=== PATIENT | female | born 1960 | race African-American/Black ===

== ENCOUNTER 2017-10-30 09:45 | Inpatient (IN) | payer OTHER ==
[~2017-10-30] VITALS: Ht 157.5 cm; Wt 59.0 kg
[2017-10-30 09:36] VITALS: BP 141/64
[~2017-10-30 09:45] MED LIST: ATARAX25 MG ORAL; DALMANE15 MG ORAL; NORCO 5-325 TA1 EACH ORAL; SOMA350 MG PO; [UNRECOGNIZED DRUG - REMARK]
[2017-10-30 10:21] LABS: EOSINOPHILS % (AUTO) 1.1 % (0.0-3.0); HEMATOCRIT 38.9 % (37.0-47.0); HEMOGLOBIN 13.1 G/DL (12.0-16.0); LYMPHOCYTES % (AUTO) 17.2 % (20.0-45.0); MEAN CORPUSCULAR VOLUME 87 FL (80-99); NEUTROPHILS % (AUTO) 73.8 % (45.0-75.0); PLATELET COUNT 374 K/UL (150-450); RED BLOOD COUNT 4.49 M/UL (4.20-5.40); RED CELL DISTRIBUTION WIDTH 11.5 % (11.6-14.8); WHITE BLOOD COUNT 7.6 K/UL (4.8-10.8)
[2017-10-30 10:34] LABS: ALANINE AMINOTRANSFERASE 24 U/L (12-78); ALBUMIN 3.6 G/DL (3.4-5.0); ALKALINE PHOSPHATASE 76 U/L (46-116); ANION GAP 11 mmol/L (5-15); ASPARTATE AMINO TRANSFERASE 24 U/L (15-37); BILIRUBIN,TOTAL 0.5 MG/DL (0.2-1.0); BLOOD UREA NITROGEN 9 mg/dL (7-18); CALCIUM 8.8 MG/DL (8.5-10.1); CARBON DIOXIDE 25 MMOL/L (21-32); CHLORIDE 85 MMOL/L (98-107); CREATININE 0.7 MG/DL (0.55-1.30); SODIUM 121 MMOL/L (136-145)
[2017-10-30 10:35] LABS: POTASSIUM 2.4 MMOL/L (3.5-5.1)
--- NOTE | 2017-10-30 11:28 | Emergency Room Report ---
History of Present Illness General Chief Complaint: Vomiting Source: Patient Present Illness HPI 57-year-old female with history of anxiety and hypertension, presents with vomiting multiple times and Loose Stools This Morning. She Denies Any Recent Antibiotic Use Any Abdominal Pain Any Fevers Any Falls or Head Injury, Headaches or Any Other Complaints. Only Intermittently Cooperative with Our Questions Here, she reports she is very anxious and after giving Ativan and Haldol she is a little more cooperative. She spoke with Shirlene, from the nursing staff and told her the majority of the history, and is very limited in her interaction with me. Allergies: Coded Allergies: ACETAMINOPHEN (Verified Allergy, Unknown, 05/04/09) HYDROCODONE (Verified Allergy, Unknown, 05/04/09) PENICILLINS (Unverified Allergy, Unknown, 10/30/17) No Known Allergies (Verified , 05/20/07) Patient History Reviewed Nursing Documentation: PMH: Agreed; PSxH: Agreed Nursing Documentation-PMH Hx Cardiac Problems: No - carpal tunnel, herniated disc, back apin Hx Hypertension: Yes History Of Psychiatric Problem: Yes - anxiety Review of Systems All Other Systems: negative except mentioned in HPI Physical Exam Vital Signs Date Time Temp Pulse Resp B/P (MAP) Pulse Ox O2 Delivery O2 Flow Rate FiO2 10/30/17 09:22 98.6 91 18 141/64 100 Room Air 98.6 Sp02 EP Interpretation: reviewed, normal General Appearance: no apparent distress, alert, non-toxic Head: normocephalic Eyes: bilateral eye normal inspection, bilateral eye PERRL, bilateral eye EOMI ENT: normal ENT inspection, hearing grossly normal, normal pharynx, no angioedema, normal voice, moist mucus membranes Neck: normal inspection, full range of motion, supple, supple/symm/no masses Respiratory: chest non-tender, lungs clear, normal breath sounds, chest symmetrical, palpation of chest normal Cardiovascular #1: normal peripheral pulses, regular rate, rhythm Cardiovascular #2: 2+ radial (R), 2+ radial (L) Gastrointestinal: normal inspection, non tender, soft, no mass, no guarding, no rebound Rectal: deferred Genitourinary: normal inspection, no CVA tenderness Musculoskeletal: back normal, gait/station normal, normal range of motion, non- tender, no calf tenderness Neurologic: alert, responsive, sales manager III-XII nml as tested, motor strength/tone normal, sensory intact, speech normal Psychiatric: judgement/insight normal, memory normal, no suicidal/homicidal ideation, other - Bizarre affect, moving her mouth and saying words but only speaking very very softly, almost unintelligible due to such quite volume Skin: normal color, no rash, warm/dry, normal turgor Lymphatic: no adenopathy Procedures Critical Care Time Critical Care Time Insert 30 minutes of critical care time excluding all procedures, pateint with need for placing seizure precautions and IV repletion of significantly low potassium and sodium placing patient at iminent risk of neurologic and cardiovascular instability. Medical Decision Making Diagnostic Impression: Primary Impression: Hyponatremia Additional Impression: Hypokalemia ER Course Patient with soft nontender abdomen, but a bizarre affect, no abdominal pain, no signs of head injury, normal neuro exam, do not suspect any other severe illness, but patient with low potassium and sodium, possibly from adequate by mouth intake combined with vomiting. We will admit and place on seizure precautions EKG Diagnostic Results EKG Time: 09:50 EP Interpretation: No ST segment changes no T-wave inversions, rate 73, right bundle branch bl Rate: normal Rhythm: NSR ST Segments: no acute changes Rhythm Strip Diag. Results Rhythm Strip Time: 12:10 EP Interpretation: yes Rate: 77 Rhythm: NSR, no PVC's, no ectopy Other X-Ray Diagnostic Results Other X-Ray Diagnostic Results : X-Ray ordered: abdomen # of Views/Limited Vs Complete: 4 View Indication: Other - vomiting EP Interpretation: Yes Interpretation: no soft tissue swelling, no fractures, nonspecific bowel gas , no sbo Impression: No acute disease Electronically Signed by: Jimmy Batres MD Last Vital Signs Date Time Temp Pulse Resp B/P (MAP) Pulse Ox O2 Delivery O2 Flow Rate FiO2 10/30/17 09:36 98.6 75 18 141/64 100 Room Air 98.6 Disposition: ADMITTED INPATIENT Referrals: NOT CHOSEN SHAYLA/,REFERRING (PCP) JIMMY BATRES M.D Oct 30, 2017 11:28
[2017-10-30 11:29] LABS: APPEARANCE,URINE CLEAR; BILIRUBIN, URINE NEGATIVE (NEGATIVE); COLOR,URINE PALE YELLOW; GLUCOSE, URINE (UA) NEGATIVE (NEGATIVE); KETONES,URINE NEGATIVE (NEGATIVE); LEUKOCYTE ESTERASE ,URINE NEGATIVE (NEGATIVE); NITRITE,URINE NEGATIVE (NEGATIVE); PH,URINE 8 (4.5-8.0); PROTEIN,URINE NEGATIVE (NEGATIVE); UROBILINOGEN,URINE NORMAL MG/DL (0.0-1.0)
[2017-10-30] MEDS ORDERED: LORazepam Inj 2mg/ml 1ml IV ONE (11:45)
[2017-10-30] MEDS ORDERED: Haloperidol 5mg/ml Inj IM ONE (12:15)
[2017-10-30 12:16] VITALS: BP 101/81
[2017-10-30 13:29] VITALS: BP 118/72
--- NOTE | 2017-10-30 15:49 | Consultation ---
Consult Note Consult Note 57-year-old female with history of anxiety and hypertension, presents with vomiting multiple times and Loose Stools This Morning. She Denies Any Recent Antibiotic Use Any Abdominal Pain Any Fevers Any Falls or Head Injury, Headaches or Any Other Complaints. Only Intermittently Cooperative with Our Questions Here, she reports she is very anxious and after giving Ativan and Haldol she is a little more cooperative. She spoke with Shirlene, from the nursing staff and told her the majority of the history, and is very limited in her interaction with me. Allergies: ACETAMINOPHEN (Verified Allergy, Unknown, 05/04/09) HYDROCODONE (Verified Allergy, Unknown, 05/04/09) PENICILLINS (Unverified Allergy, Unknown, 10/30/17) No Known Allergies (Verified , 05/20/07) Hx Cardiac Problems: No - carpal tunnel, herniated disc, back apin Hx Hypertension: Yes History Of Psychiatric Problem: Yes - anxiety interviewed- examined- data reviewed discussed with applied biology professor/Plan HypoNatremia- Depletional HypoKalemia : due to HCTZ Intractible vomiting- HTN Anxiety Ds D5NS KCL Pepcid Zofran monitor Eleazar Ramirez MD Oct 30, 2017 15:49
[2017-10-30 16:00] VITALS: BP 115/71
[2017-10-30] MEDS ORDERED: Pantoprazole Inj IVP SCH (16:00)
[2017-10-30] MEDS ORDERED: Pantoprazole Inj IVP ONE (16:00)
--- NOTE | 2017-10-30 16:20 | Diagnostic Imaging Report ---
Indication: Vomiting and pain Technique: Supine and upright view of the abdomen Comparison: none Findings: Unremarkable bowel gas pattern. No gaseous distention of large or small bowel. No significant air-fluid levels or evidence of free intraperitoneal air. No unusual masses or calcifications Impression: No acute process
[2017-10-30] MEDS: D5NS w/KCl 40mEq 1000ml 1,000 ML IV SCH (17:37)
[2017-10-30 20:00] VITALS: BP 122/82
--- NOTE | 2017-10-30 22:55 | Consultation ---
History of Present Illness General Chief Complaint: Vomiting Present Illness Allergies: Coded Allergies: ACETAMINOPHEN (Verified Allergy, Unknown, 05/04/09) HYDROCODONE (Verified Allergy, Unknown, 05/04/09) PENICILLINS (Unverified Allergy, Unknown, 10/30/17) No Known Allergies (Verified , 05/20/07) Medication History Scheduled Carisoprodol* (Soma*), 350 MG PO HS, (Reported) Flurazepam HCl (Flurazepam HCl), 15 MG ORAL QHS, (Reported) Hydroxyzine HCl (Hydroxyzine HCl), 25 MG ORAL HS, (Reported) Scheduled PRN Hydrocodone Bit/Acetaminophen 5-325* ([place] 5-325*), 1 TAB ORAL Q4H PRN for For Pain, (Reported) Miscellaneous Medications [No Med Lists], (Reported) Patient History Healthcare decision maker Resuscitation status Full Code Advanced Directive on File Physical Exam Last 24 Hour Vital Signs Date Time Temp Pulse Resp B/P (MAP) Pulse Ox O2 Delivery O2 Flow Rate FiO2 10/30/17 21:00 Room Air 10/30/17 20:00 98.9 84 18 122/82 (95) 100 98.9 10/30/17 20:00 77 10/30/17 16:14 Room Air 10/30/17 16:00 97.1 78 20 115/71 (86) 100 97.1 10/30/17 15:58 71 10/30/17 15:30 98.0 78 18 124/74 99 Room Air 10/30/17 13:29 98.6 72 12 118/72 100 Room Air 98.6 10/30/17 12:16 98.6 84 22 101/81 100 Room Air 98.6 10/30/17 09:36 98.6 75 18 141/64 100 Room Air 98.6 10/30/17 09:22 98.6 91 18 141/64 100 Room Air 98.6 Laboratory Tests Test 10/30/17 09:52 10/30/17 10:34 White Blood Count 7.6 K/UL (4.8-10.8) Red Blood Count 4.49 M/UL (4.20-5.40) Hemoglobin 13.1 G/DL (12.0-16.0) Hematocrit 38.9 % (37.0-47.0) Mean Corpuscular Volume 87 FL (80-99) Mean Corpuscular Hemoglobin 29.2 PG (27.0-31.0) Mean Corpuscular Hemoglobin Concent 33.7 G/DL (32.0-36.0) Red Cell Distribution Width 11.5 % (11.6-14.8) L Platelet Count 374 K/UL (150-450) Mean Platelet Volume 5.8 FL (6.5-10.1) L Neutrophils (%) (Auto) 73.8 % (45.0-75.0) Lymphocytes (%) (Auto) 17.2 % (20.0-45.0) L Monocytes (%) (Auto) 7.0 % (1.0-10.0) Eosinophils (%) (Auto) 1.1 % (0.0-3.0) Basophils (%) (Auto) 1.0 % (0.0-2.0) Sodium Level 121 MMOL/L (136-145) L Potassium Level 2.4 MMOL/L (3.5-5.1) *L Chloride Level 85 MMOL/L (98-107) L Carbon Dioxide Level 25 MMOL/L (21-32) Anion Gap 11 mmol/L (5-15) Blood Urea Nitrogen 9 mg/dL (7-18) Creatinine 0.7 MG/DL (0.55-1.30) Estimat Glomerular Filtration Rate > 60 mL/min (>60) Glucose Level 96 MG/DL (74-106) Calcium Level 8.8 MG/DL (8.5-10.1) Magnesium Level 1.8 MG/DL (1.8-2.4) Total Bilirubin 0.5 MG/DL (0.2-1.0) Aspartate Amino Transf (AST/SGOT) 24 U/L (15-37) Alanine Aminotransferase (ALT/SGPT) 24 U/L (12-78) Alkaline Phosphatase 76 U/L (46-116) Troponin I 0.000 ng/mL (0.000-0.056) C-Reactive Protein, Quantitative 0.9 mg/dL (0.00-0.90) Total Protein 7.2 G/DL (6.4-8.2) Albumin 3.6 G/DL (3.4-5.0) Globulin 3.6 g/dL Albumin/Globulin Ratio 1.0 (1.0-2.7) Lipase 100 U/L (73-393) Urine Color Pale yellow Urine Appearance Clear Urine pH 8 (4.5-8.0) Urine Specific [place] 1.010 (1.005-1.035) Urine Protein Negative (NEGATIVE) Urine Glucose (UA) Negative (NEGATIVE) Urine Ketones Negative (NEGATIVE) Urine Occult Blood Negative (NEGATIVE) Urine Nitrite Negative (NEGATIVE) Urine Bilirubin Negative (NEGATIVE) Urine Urobilinogen Normal MG/DL (0.0-1.0) Urine Leukocyte Esterase Negative (NEGATIVE) Height (Feet): 5 Height (Inches): 2.00 Weight (Pounds): 130 Medications Current Medications Medications (Trade) Dose Ordered Sig/Nithin Route PRN Reason Start Time Stop Time Status Last Admin Dose Admin Carisoprodol (Soma) 350 mg QHS ORAL 10/30/17 21:00 11/29/17 20:59 10/30/17 21:12 Dextrose/ Electrolytes 1,000 ml @ 75 mls/hr [id number] IV 10/30/17 17:00 11/29/17 16:59 10/30/17 17:37 Famotidine (Pepcid I.v.) 20 mg Q12HR IVP 10/30/17 21:00 11/29/17 20:59 10/30/17 21:10 Ondansetron HCl (Zofran) 4 mg Q6H PRN IVP Nausea & Vomiting 10/30/17 16:00 11/29/17 15:59 Gómez Hernandez MD Oct 30, 2017 22:55
[2017-10-31] VITALS: BP 123/77
[2017-10-31 04:00] VITALS: BP 144/64
[2017-10-31 04:30] LABS: BASOPHILS % (AUTO) 0.9 % (0.0-2.0); EOSINOPHILS % (AUTO) 4.3 % (0.0-3.0); HEMATOCRIT 34.8 % (37.0-47.0); HEMOGLOBIN 12.7 G/DL (12.0-16.0); LYMPHOCYTES % (AUTO) 26.6 % (20.0-45.0); MEAN CORPUSCULAR VOLUME 87 FL (80-99); MONOCYTES % (AUTO) 8.6 % (1.0-10.0); NEUTROPHILS % (AUTO) 59.6 % (45.0-75.0); PLATELET COUNT 361 K/UL (150-450); RED CELL DISTRIBUTION WIDTH 11.6 % (11.6-14.8); WHITE BLOOD COUNT 5.6 K/UL (4.8-10.8)
[2017-10-31 04:54] LABS: ALANINE AMINOTRANSFERASE 21 U/L (12-78); ALBUMIN/GLOBULIN RATIO 0.9 (1.0-2.7); ALKALINE PHOSPHATASE 73 U/L (46-116); ANION GAP 10 mmol/L (5-15); ASPARTATE AMINO TRANSFERASE 15 U/L (15-37); BILIRUBIN,TOTAL 0.4 MG/DL (0.2-1.0); BLOOD UREA NITROGEN 5 mg/dL (7-18); CALCIUM 8.6 MG/DL (8.5-10.1); CARBON DIOXIDE 22 MMOL/L (21-32); CHLORIDE 105 MMOL/L (98-107); CHOLESTEROL 186 MG/DL (< 200); CREATINE KINASE 92 U/L (26-308); CREATININE 0.7 MG/DL (0.55-1.30); GAMMA GLUTAMYL TRANSPEPTIDASE 17 U/L (5-85); HDL CHOLESTEROL 70 MG/DL (40-60); PHOSPHORUS 2.8 MG/DL (2.5-4.9); POTASSIUM 3.5 MMOL/L (3.5-5.1); SODIUM 137 MMOL/L (136-145); TRIGLYCERIDES 30 MG/DL (30-150)
[2017-10-31] MEDS: D5NS w/KCl 40mEq 1000ml 1,000 ML IV SCH (06:20)
[2017-10-31 08:00] VITALS: BP 111/71
--- NOTE | 2017-10-31 09:24 | History & Physical ---
History and Physical History & Physicial DICT # [id number] Manfred Hobson MD Oct 31, 2017 09:24
--- NOTE | 2017-10-31 10:07 | General Progress Note ---
Assessment/Plan Assessment/Plan GI CONSULT Assessment - acute N/V - likely viral gastroenteritis - Hyponatremia / hypokalemia - improved Recommendations - advance diet - IV hydration - replace lytes - further w/u if GI symptoms persist Thank you Ailyn Emerson MD Subjective Allergies: Coded Allergies: ACETAMINOPHEN (Verified Allergy, Unknown, 05/04/09) HYDROCODONE (Verified Allergy, Unknown, 05/04/09) PENICILLINS (Unverified Allergy, Unknown, 10/30/17) No Known Allergies (Verified , 05/20/07) Objective Last 24 Hour Vital Signs Date Time Temp Pulse Resp B/P (MAP) Pulse Ox O2 Delivery O2 Flow Rate FiO2 10/31/17 09:00 Room Air 10/31/17 08:00 98.1 65 18 111/71 (84) 96 98.1 10/31/17 07:37 68 10/31/17 04:00 97.4 64 18 144/64 (90) 98 97.4 10/31/17 04:00 79 10/31/17 00:00 62 10/31/17 00:00 98.3 91 20 123/77 (92) 98 98.3 10/30/17 21:00 Room Air 10/30/17 20:00 98.9 84 18 122/82 (95) 100 98.9 10/30/17 20:00 77 10/30/17 16:14 Room Air 10/30/17 16:00 97.1 78 20 115/71 (86) 100 97.1 10/30/17 15:58 71 10/30/17 15:30 98.0 78 18 124/74 99 Room Air 10/30/17 13:29 98.6 72 12 118/72 100 Room Air 98.6 10/30/17 12:16 98.6 84 22 101/81 100 Room Air 98.6 Intake and Output 10/30/17 10/31/17 19:00 07:00 Intake Total 75 ml 700 ml Output Total 0 ml Balance 75 ml 700 ml Intake Oral 100 ml IV Total 75 ml 600 ml Output Urine Total 0 ml Laboratory Tests 10/30/17 10:34: Urine Color Pale yellow, Urine Appearance Clear, Urine pH 8, Urine Specific [place] 1.010, Urine Protein Negative, Urine Glucose (UA) Negative, Urine Ketones Negative, Urine Occult Blood Negative, Urine Nitrite Negative, Urine Bilirubin Negative, Urine Urobilinogen Normal, Urine Leukocyte Esterase Negative 10/31/17 04:18: White Blood Count 5.6, Red Blood Count 4.00L, Hemoglobin 12.7, Hematocrit 34.8L , Mean Corpuscular Volume 87, Mean Corpuscular Hemoglobin 31.9H, Mean Corpuscular Hemoglobin Concent 36.5H, Red Cell Distribution Width 11.6, Platelet Count 361, Mean Platelet Volume 5.4L, Neutrophils (%) (Auto) 59.6, Lymphocytes (%) (Auto) 26.6, Monocytes (%) (Auto) 8.6, Eosinophils (%) (Auto) 4.3H, Basophils (%) (Auto) 0.9, Sodium Level 137#, Potassium Level 3.5, Chloride Level 105, Carbon Dioxide Level 22, Anion Gap 10, Blood Urea Nitrogen 5L, Creatinine 0.7, Estimat Glomerular Filtration Rate > 60, Glucose Level 91, Hemoglobin A1c 5.7, Uric Acid 2.7, Calcium Level 8.6, Phosphorus Level 2.8, Magnesium Level 2.0, Total Bilirubin 0.4, Gamma Glutamyl Transpeptidase 17, Aspartate Amino Transf (AST/SGOT) 15, Alanine Aminotransferase (ALT/SGPT) 21, Alkaline Phosphatase 73, Total Creatine Kinase 92, Pro-B-Type Natriuretic Peptide 168H, Total Protein 6.5, Albumin 3.0L, Globulin 3.5, Albumin/Globulin Ratio 0.9L, Triglycerides Level 30, Cholesterol Level 186, LDL Cholesterol 107H , HDL Cholesterol 70H, Cholesterol/HDL Ratio 2.7L, Thyroid Stimulating Hormone ( TSH) 0.612 Height (Feet): 5 Height (Inches): 2.00 Weight (Pounds): 130 Ailyn Emerson MD Oct 31, 2017 10:07
[2017-10-31 12:00] VITALS: BP 135/81
--- NOTE | 2017-10-31 13:22 | Nephrology Progress Note ---
Assessment/Plan Problem List: (1) Hyponatremia (2) Hypokalemia (3) Hx. carpal tunnel (4) Intractable vomiting Assessment HypoNatremia- Depletional HypoKalemia : due to HCTZ Intractible vomiting- HTN Anxiety Ds Plan stop IV advance PO Pepcid PO Zofran monitor lytes med surg Subjective ROS Limited/Unobtainable: No Constitutional: Reports: malaise Objective Objective Last 24 Hour Vital Signs Date Time Temp Pulse Resp B/P (MAP) Pulse Ox O2 Delivery O2 Flow Rate FiO2 10/31/17 09:00 Room Air 10/31/17 08:00 98.1 65 18 111/71 (84) 96 98.1 10/31/17 07:37 68 10/31/17 04:00 97.4 64 18 144/64 (90) 98 97.4 10/31/17 04:00 79 10/31/17 00:00 62 10/31/17 00:00 98.3 91 20 123/77 (92) 98 98.3 10/30/17 21:00 Room Air 10/30/17 20:00 98.9 84 18 122/82 (95) 100 98.9 10/30/17 20:00 77 10/30/17 16:14 Room Air 10/30/17 16:00 97.1 78 20 115/71 (86) 100 97.1 10/30/17 15:58 71 10/30/17 15:30 98.0 78 18 124/74 99 Room Air 10/30/17 13:29 98.6 72 12 118/72 100 Room Air 98.6 Intake and Output 10/30/17 10/31/17 19:00 07:00 Intake Total 75 ml 700 ml Output Total 0 ml Balance 75 ml 700 ml Intake Oral 100 ml IV Total 75 ml 600 ml Output Urine Total 0 ml Laboratory Tests 10/31/17 04:18: White Blood Count 5.6, Red Blood Count 4.00L, Hemoglobin 12.7, Hematocrit 34.8L , Mean Corpuscular Volume 87, Mean Corpuscular Hemoglobin 31.9H, Mean Corpuscular Hemoglobin Concent 36.5H, Red Cell Distribution Width 11.6, Platelet Count 361, Mean Platelet Volume 5.4L, Neutrophils (%) (Auto) 59.6, Lymphocytes (%) (Auto) 26.6, Monocytes (%) (Auto) 8.6, Eosinophils (%) (Auto) 4.3H, Basophils (%) (Auto) 0.9, Sodium Level 137#, Potassium Level 3.5, Chloride Level 105, Carbon Dioxide Level 22, Anion Gap 10, Blood Urea Nitrogen 5L, Creatinine 0.7, Estimat Glomerular Filtration Rate > 60, Glucose Level 91, Hemoglobin A1c 5.7, Uric Acid 2.7, Calcium Level 8.6, Phosphorus Level 2.8, Magnesium Level 2.0, Total Bilirubin 0.4, Gamma Glutamyl Transpeptidase 17, Aspartate Amino Transf (AST/SGOT) 15, Alanine Aminotransferase (ALT/SGPT) 21, Alkaline Phosphatase 73, Total Creatine Kinase 92, Pro-B-Type Natriuretic Peptide 168H, Total Protein 6.5, Albumin 3.0L, Globulin 3.5, Albumin/Globulin Ratio 0.9L, Triglycerides Level 30, Cholesterol Level 186, LDL Cholesterol 107H , HDL Cholesterol 70H, Cholesterol/HDL Ratio 2.7L, Thyroid Stimulating Hormone ( TSH) 0.612 Height (Feet): 5 Height (Inches): 2.00 Weight (Pounds): 130 General Appearance: no apparent distress Abdomen: soft Eleazar Arreola MD Oct 31, 2017 13:22
[2017-10-31] MEDS ORDERED: LORazepam 0.5mg tab ORAL PRN ×2 (13:30→21:00)
[2017-10-31 16:00] VITALS: BP 129/77
--- NOTE | 2017-10-31 17:30 | History and Physical Report ---
DATE OF ADMISSION: 10/30/2017 REASON FOR ADMISSION: Vomiting and electrolyte abnormalities. HISTORY OF PRESENT ILLNESS: The patient is a 57-year-old female with a history of sensory dissociation disorder, anxiety and high blood pressure, who presents with several days of nausea and vomiting with decreased p.o. intake, She states that she is sensitive to the heat and the heat in her house causing onset of her symptoms. When she initially presented to the emergency department, she was afebrile with stable vital signs, but she had a sodium of 121 and potassium of 2.4 in the setting of dehydration. She has since been hydrated with improvement in her indices. She denies any other complaints. No fevers or chills. No headache or dizziness. No chest pain or shortness of breath. She states her bowel habits have been normal. PAST MEDICAL HISTORY: 1. Anxiety disorder. 2. Sensory dissociation disorder. 3. History of overdose in the past. 4. Neuropathy. PAST SURGICAL HISTORY: Carpal tunnel release. ALLERGIES: Acetaminophen, hydrocodone and penicillin. MEDICATIONS: Prior to admission medications [place], Soma, lorazepam, and hydroxyzine. SOCIAL HISTORY: She denies any tobacco, alcohol or drug use. She is on disability. She lives alone. FAMILY HISTORY: Noncontributory. REVIEW OF SYSTEMS: Negative other than history of present illness. PHYSICAL EXAMINATION: GENERAL: She is a well-developed, well-nourished female in no acute distress. Awake, alert, and oriented x3. VITAL SIGNS: Temperature 98.3 degrees, pulse 62, blood pressure 123/77, respiratory rate 20, and saturating 98% on room air. HEENT: Normocephalic and atraumatic. Oropharynx is clear with moist mucous membranes. NECK: Supple without lymphadenopathy or JVD. CHEST: Clear to auscultation bilaterally. HEART: Regular rate and rhythm without murmurs, rubs, or gallops. ABDOMEN: Soft, nontender, and nondistended. EXTREMITIES: No cyanosis, clubbing or edema. ANCILLARY DATA: White count 5.6, hemoglobin 12.7, and platelet count 361. Sodium on admission 121, potassium 2.4. Currently, sodium 137, potassium 3.5, bicarbonate 22, chloride 105, BUN 5, gap 10, creatinine 0.7, and glucose 91. Hemoglobin A1c 5.7. Uric acid 2.7. Calcium 8.6. Phosphorus 2.8. Magnesium 2.0. Total bilirubin 0.4. GGT 17. AST 15, ALT 21, and alkaline phosphatase 73. CK 92. Troponin negative. CRP 0.9. ProBNP 168. Total protein 6.5. Albumin 3.0, globulin 3.5, ratio 0.9. Triglycerides 30, cholesterol 186, LDL 107, and HDL 70. Lipase 100. TSH 0.612. Urinalysis is negative. Micro is nothing there. KUB, no acute findings. ASSESSMENT: The patient is a 57-year-old female with a history of sensory dissociation disorder and anxiety presenting with abnormal electrolytes in the setting of dehydration and several days of nausea and vomiting. She is markedly improved with IV fluids. I suspect the etiology of her initial nausea and vomiting was secondary to gastroenteritis or a viral process. Nonetheless, she is markedly improved except for marked component of anxiety. PROBLEM LIST: 1. Nausea and vomiting times several days, possible gastroenteritis versus viral process. 2. Dehydration secondary to #1 above. 3. Abnormal electrolytes (hyponatremia and hypokalemia) secondary to above, improved with IV fluid hydration. 4. Anxiety. 5. History of sensory dissociation disorder. TREATMENT PLAN: 1. IV fluid hydration. 2. Supportive care. 3. Clear liquid diet, advance as tolerated. 4. Follow up Renal recommendations. 5. Gastroenterology evaluation. 6. Follow up Psychiatry recommendations. 7. Monitor volumes and renal function. 8. DVT prophylaxis, SCDs. 9. Disposition and planning. Once the patient is stable, I suspect she can be discharged home in the next day. Manfred Hobson M.D. DR: IMMANUEL JOB#: [id number] CC:
[2017-10-31 20:00] VITALS: BP 107/67
--- NOTE | 2017-10-31 21:00 | Consultation ---
DATE OF CONSULTATION: 10/31/2017 CHIEF COMPLAINT: I was asked to see this patient by Dr. Manfred Hobson for evaluation of gastrointestinal symptoms. HISTORY OF PRESENT ILLNESS: The patient is a pleasant 57-year-old white woman with minimal past medical history who comes into the hospital due to one to two days history of nausea and vomiting. She states that she had some mild nausea about two days and then severe nausea and vomiting one day prior to admission. She denies any abdominal pain, hematochezia, or melena. She did have some chills, but no fevers. She has had no recent travels or camping trips. She does not have any pets. She came to the hospital with severe electrolyte disturbances and was admitted. Overnight she has been hydrated and she feels better today. She has been tolerating clear liquid diet. PAST MEDICAL HISTORY: History of hypertension, history of anxiety, history of carpal tunnel release as well as arthritis. FAMILY HISTORY: Noncontributory. SOCIAL HISTORY: The patient is single. She has no children. She does not smoke or drink alcohol. MEDICATIONS: The patient takes blood pressure medication and hormonal replacement. REVIEW OF SYSTEMS: Otherwise negative. PHYSICAL EXAMINATION: GENERAL: A pleasant white woman, seen in her room. HEENT: Normocephalic and atraumatic. Sclerae anicteric. Oropharynx clear. NECK: Supple. CHEST: Clear to auscultation. CARDIOVASCULAR: Regular rate. ABDOMEN: Soft, nontender, and nondistended. EXTREMITIES: Revealed no edema. LABORATORY AND DIAGNOSTIC DATA: Laboratory data were noted. ASSESSMENT: This patient presents with a recent history of her acute nausea and vomiting and electrolyte disturbances, which are rapidly improving with supportive therapy. Her symptoms are much better today, which is consistent with her viral gastroenteritis so her recovery should be uneventful and relatively fast. Should her symptoms persist, further evaluation with imaging studies or cultures and sensitivity. For the time being; however, she appears to have recovered uneventfully and should be supported with IV fluids and followup. RECOMMENDATIONS: 1. Continue IV fluids. 2. Follow laboratory parameters. 3. Advance diet. 4. Further workup if symptoms persist. Thank you for asking me to participate in the care of this patient. Ailyn Emerson M.D. DR: SCOT JOB#: [id number] CC: [place]
[2017-11-01] VITALS: BP 114/74
[2017-11-01 04:00] VITALS: BP 109/71
[2017-11-01 08:00] VITALS: BP 125/88
[2017-11-01 12:00] VITALS: BP 134/83
--- NOTE | 2017-11-01 12:42 | Nephrology Progress Note ---
Assessment/Plan Problem List: (1) Hyponatremia (2) Hypokalemia (3) Hx. carpal tunnel (4) Intractable vomiting Assessment HypoNatremia- Depletional HypoKalemia : due to HCTZ Intractible vomiting- HTN Anxiety Ds Plan tolerating po BP OK Pepcid PO Zofran DC planning? Subjective ROS Limited/Unobtainable: No Objective Objective Last 24 Hour Vital Signs Date Time Temp Pulse Resp B/P (MAP) Pulse Ox O2 Delivery O2 Flow Rate FiO2 11/01/17 08:00 97.7 110 19 125/88 (100) 96 97.7 11/01/17 04:00 97.0 58 19 109/71 (84) 98 97.0 11/01/17 00:00 97.9 66 20 114/74 (87) 98 97.9 10/31/17 22:47 97.9 10/31/17 21:00 Room Air 10/31/17 20:00 97.9 68 18 107/67 (80) 98 97.9 10/31/17 16:00 97.5 63 18 129/77 (94) 98 97.5 10/31/17 15:28 69 Intake and Output 10/31/17 11/01/17 19:00 07:00 Intake Total 600 ml Balance 600 ml Intake Oral 600 ml # Voids 4 1 # Bowel Movements 1 Current Medications Medications (Trade) Dose Ordered Sig/Nithin Route PRN Reason Start Time Stop Time Status Last Admin Dose Admin Carisoprodol (Soma) 350 mg QHS ORAL 10/31/17 21:00 11/29/17 20:59 10/31/17 21:48 Famotidine (Pepcid) 20 mg BID ORAL 11/01/17 09:00 11/30/17 17:59 11/01/17 08:27 Lorazepam (Ativan) 0.5 mg TIDPRN PRN ORAL For Anxiety 10/31/17 21:00 11/07/17 20:59 Ondansetron HCl (Zofran) 4 mg Q6H PRN IVP Nausea & Vomiting 10/31/17 20:45 11/29/17 20:44 Height (Feet): 5 Height (Inches): 2.00 Weight (Pounds): 130 Cardiovascular: normal rate Respiratory/Chest: decreased breath sounds Abdomen: soft Eleazar Arreola MD Nov 01, 2017 12:42
--- NOTE | 2017-11-01 14:02 | General Progress Note ---
Assessment/Plan Problem List: (1) Gastroenteritis Assessment & Plan: RESOLVED ICD Codes: K52.9 - Noninfective gastroenteritis and colitis, unspecified SNOMED: 27311963 (2) Hypokalemia Assessment & Plan: RESOLVED ICD Codes: E87.6 - Hypokalemia SNOMED: 25451542 (3) Hyponatremia Assessment & Plan: RESOLVED ICD Codes: E87.1 - Hypo-osmolality and hyponatremia SNOMED: 47364812 (4) Intractable vomiting Assessment & Plan: RESOLVED ICD Codes: R11.10 - Vomiting, unspecified SNOMED: 414409726 (5) Sensation disorder ICD Codes: R20.9 - Unspecified disturbances of skin sensation SNOMED: 05325983 Status: doing well Assessment/Plan Supportive care PO hydration Off IVF D/C home F/U with PMD Subjective Allergies: Coded Allergies: ACETAMINOPHEN (Verified Allergy, Unknown, 05/04/09) HYDROCODONE (Verified Allergy, Unknown, 05/04/09) PENICILLINS (Unverified Allergy, Unknown, 10/30/17) No Known Allergies (Verified , 05/20/07) Subjective AFVSS, stable on RA, lizzeth PO, no N/V, no D/C, + BM, no abd pain, no urinary complaints, getting OOB Objective Last 24 Hour Vital Signs Date Time Temp Pulse Resp B/P (MAP) Pulse Ox O2 Delivery O2 Flow Rate FiO2 11/01/17 12:00 97.1 61 20 134/83 (100) 100 97.1 11/01/17 09:00 Room Air 11/01/17 08:00 97.7 110 19 125/88 (100) 96 97.7 11/01/17 04:00 97.0 58 19 109/71 (84) 98 97.0 11/01/17 00:00 97.9 66 20 114/74 (87) 98 97.9 10/31/17 22:47 97.9 10/31/17 21:00 Room Air 10/31/17 20:00 97.9 68 18 107/67 (80) 98 97.9 10/31/17 16:00 97.5 63 18 129/77 (94) 98 97.5 10/31/17 15:28 69 Intake and Output 10/31/17 11/01/17 19:00 07:00 Intake Total 600 ml Balance 600 ml Intake Oral 600 ml # Voids 4 1 # Bowel Movements 1 Height (Feet): 5 Height (Inches): 2.00 Weight (Pounds): 130 General Appearance: WD/WN, no apparent distress EENT: PERRL/EOMI, normal ENT inspection Neck: non-tender, normal alignment, supple, normal inspection Cardiovascular: normal peripheral pulses, normal rate, regular rhythm Respiratory/Chest: chest wall non-tender, lungs clear, normal breath sounds, no respiratory distress, no accessory muscle use Abdomen: normal bowel sounds, non tender, soft, no organomegaly, no mass Extremities: normal range of motion Edema: no edema noted Arm (L), no edema noted Arm (R), no edema noted Leg (L), no edema noted Leg (R), no edema noted Pedal (L), no edema noted Pedal (R), no edema noted Generalized Manfred Hobson MD Nov 01, 2017 14:02
--- NOTE | 2017-11-01 14:26 | Discharge Summary ---
Discharge Summary Discharge Summary _ DICT # [id number] Manfred Hobson MD Nov 01, 2017 14:26
[2017-11-01 16:00] VITALS: BP 135/85
--- NOTE | 2017-11-01 16:22 | General Progress Note ---
Assessment/Plan Assessment/Plan Assessment - acute N/V - likely viral gastroenteritis - Hyponatremia / hypokalemia - improved Recommendations - po diet - IV hydration - replace lytes - d/c planning Subjective Allergies: Coded Allergies: ACETAMINOPHEN (Verified Allergy, Unknown, 05/04/09) HYDROCODONE (Verified Allergy, Unknown, 05/04/09) PENICILLINS (Unverified Allergy, Unknown, 10/30/17) No Known Allergies (Verified , 05/20/07) Subjective feels better No N/V no diarrhea Objective Last 24 Hour Vital Signs Date Time Temp Pulse Resp B/P (MAP) Pulse Ox O2 Delivery O2 Flow Rate FiO2 11/01/17 12:00 97.1 61 20 134/83 (100) 100 97.1 11/01/17 09:00 Room Air 11/01/17 08:00 97.7 110 19 125/88 (100) 96 97.7 11/01/17 04:00 97.0 58 19 109/71 (84) 98 97.0 11/01/17 00:00 97.9 66 20 114/74 (87) 98 97.9 10/31/17 22:47 97.9 10/31/17 21:00 Room Air 10/31/17 20:00 97.9 68 18 107/67 (80) 98 97.9 Intake and Output 10/31/17 11/01/17 19:00 07:00 Intake Total 600 ml Balance 600 ml Intake Oral 600 ml # Voids 4 1 # Bowel Movements 1 Height (Feet): 5 Height (Inches): 2.00 Weight (Pounds): 130 Objective WDWN NCAT supple CTA RRR abd soft ND No edema nonfocal Ailyn Emerson MD Nov 01, 2017 16:22
[2017-11-01 20:00] VITALS: BP 134/89
--- NOTE | 2017-11-01 21:30 | Discharge Summary ---
DATE OF ADMISSION: 10/30/2017 DATE OF DISCHARGE: 11/01/2017 ADMISSION DIAGNOSES: 1. Nausea and vomiting. 2. Dehydration. 3. Electrolyte abnormalities. 4. Anxiety. 5. History of sensory dissociation disorder. DISCHARGE DIAGNOSES: 1. Nausea, vomiting, likely secondary to gastroenteritis, resolved. 2. Dehydration, resolved. 3. Electrolyte abnormalities, resolved. 4. Anxiety. 5. History of sensation dissociation disorder. HISTORY OF PRESENT ILLNESS: The patient is a 57-year-old female with history of sensory dissociation disorder and anxiety, presenting with abnormal electrolytes in the setting of dehydration with several days of nausea and vomiting. HOSPITAL COURSE: The patient was admitted to the hospital and hydrated with IV fluids. She was seen in consultation by Nephrology and Gastroenterology. Her electrolyte abnormalities were corrected. Her nausea, vomiting, and abdominal complaints resolved . On the day of discharge, she was afebrile with stable vital signs and no complaints. CONSULTANTS: 1. Eleazar Arreola M.D., Nephrology. 2. Ailyn Emerson M.D., Gastroenterology. STUDIES: Abdominal x-ray and laboratories as per report. DISCHARGE CONDITION: Good. DISCHARGE DESTINATION: Home. DISCHARGE DIET: Regular. DISCHARGE MEDICATION LIST: Per system. DISCHARGE FOLLOWUP: With her PMD within 1 week. Manfred Hobson M.D. DR: NATTY JOB#: [id number] CC:
== END 2017-11-01 20:05 | disposition home or self-care (01) | DRG 641 ==
LOC: EDBD 09:45 → EMR 10:20 → 2E 13:10 → EDBEDREQ 13:36 → 4E 10-31 22:00
DX: E87.1 Hypo-osmolality and hyponatremia (principal); E86.0 Dehydration; K52.9 Noninfective gastroenteritis and colitis, unspecified; F41.9 Anxiety disorder, unspecified; Z88.6 Allergy status to analgesic agent; Z88.0 Allergy status to penicillin; E87.6 Hypokalemia; I10 Essential (primary) hypertension; M19.90 Unspecified osteoarthritis, unspecified site; R20.9 Unspecified disturbances of skin sensation
CPT/HCPCS: 36415; 74019; 80053; 80061; 81003; 82550; 82977; 83036; 83690; 83735; 83880; 84100; 84443; 84484; 84550; 85025; 86140; 93005; J2405; J8499